=== PATIENT | male | born 1985 | race Two or more races ===

== ENCOUNTER 2017-01-21 11:54 | Emergency (ER) | payer OTHER | END 2017-01-21 12:40 | disposition home or self-care (01) | LOC: CFTX 11:54 | DX: I88.9 Nonspecific lymphadenitis, unspecified (principal) | CPT/HCPCS: 10060; 99283 ==

== ENCOUNTER 2017-01-24 14:08 | Emergency (ER) | payer OTHER | END 2017-01-24 14:35 | disposition home or self-care (01) | LOC: CFTX 14:08 | DX: L02.11 Cutaneous abscess of neck (principal) | CPT/HCPCS: 99282 ==

== ENCOUNTER → 2017-03-04 | Day surgery (SDC) | payer OTHER ==
--- NOTE | ~2017-03-04 | OR ---
Unit #: [id number] #: [id number] Patient: KOFI MURILLO [id number] [address] [place], [place] [address] [id number] O MR#: [id number] NAME: KOFI MURILLO ROOM: Date of Procedure: 03/04/2017 Admission Date: 03/04/2017 Surgeon: Jamarcus Royal Jr., M.D. : 1985 Attending Physician: Jamarcus Royal Jr., M.D. Referring Physician: Jamarcus Royal Jr., M.D. OPERATIVE REPORT INDICATIONS FOR PROCEDURE The patient is a 31-year-old Latin male, who recently presented to the office complaining of a large mass of the nape of the neck. This has been sore at times, but has had no drainage and on examination, it was felt he had a large cyst of the nape of the neck. He is brought in this time for excision of this under local anesthesia. He understands the procedure including the risks, including that of recurrence, infection, and chronic pain, and consents. PREOPERATIVE DIAGNOSIS Large 5 to 6 cm chronic inflamed cyst of the nape of the neck. POSTOPERATIVE DIAGNOSIS Large 5 to 6 cm chronic inflamed cyst of the nape of the neck. ANESTHESIA 1% Xylocaine with epinephrine locally. PROCEDURE PERFORMED Excision of large cyst of the nape of the neck. DESCRIPTION OF PROCEDURE The patient was positioned in prone position. After being prepped and draped in routine fashion, he was anesthetized locally in the area of the cyst, which was palpable in the holding room. This was locally anesthetized with 1% Xylocaine with epinephrine. An elliptical incision was made around the cyst being totally excised from the surrounding tissue down to the deeper subcutaneous tissue with a #15 blade scalpel. After the cyst was removed completely from the muscle, it was sent to pathology. Hemostasis was achieved with Bovie cautery. The deeper tissue approximated with interrupted 3-0 Vicryl sutures. Skin edges approximated with stainless-steel skin clips and skin stapling device. Sterile dressings applied externally. Estimated blood loss minimal. No drains were used. No complications. The patient was discharged in satisfactory condition. Dictated by... Jamarcus Royal Jr., M.D. [facility] Unit #: [id number] #: [id number] Patient: POOJA OMIKOFI HUFFMAN TD: 03/04/2017 22:40 JOB #: [id number] OPERATIVE REPORT Page 1 of 1 X Jamarcus Royal MD PROCEDURE OPERATIVE NOTE
== END | disposition home or self-care (01) ==
LOC: CSUR 07:40
DX: L72.3 Sebaceous cyst (principal); Z79.2 Long term (current) use of antibiotics; Z79.899 Other long term (current) drug therapy
CPT/HCPCS: 88304; J3370